=== PATIENT | female | born 2000 | race Caucasian/White ===

== ENCOUNTER 2024-08-17 13:30 | Emergency (ER) | payer OTHER, SELFPAY ==
[2024-08-17 13:35] VITALS: BP 130/84; PULSE 100; TEMP 37.1; O2SAT 97; BMI 30.4
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
== END 2024-08-17 14:46 | disposition home or self-care (01) ==
PROVIDERS: Emergency Provider Emergency Medicine
DX: S40.022D Contusion of left upper arm, subsequent encounter (principal); V49.9XXD Car occupant (driver) (passenger) injured in unspecified traffic accident, subsequent encounter
CPT/HCPCS: 99283